=== PATIENT | male | born 1945 | race Caucasian/White ===

== ENCOUNTER → 2018-11-02 | Outpatient (CLI) | payer MEDICARE ==
--- NOTE | 2018-11-02 11:33 | REP ---
LEFT ANKLE, FOUR VIEWS: HISTORY: Sprain. There is no acute fracture or dislocation. The joint space is normal in appearance. Calcified densities are present inferior to the medial and lateral malleoli. These represent ligamentous or tendon calcifications. Soft tissue swelling is present. IMPRESSION: There is no acute fracture or dislocation. Electronically Signed by Chepe Dowd MD 11/02/2018 11:39 A
== END ==
LOC: M WUC 10:07
PROVIDERS: ATTEND Physician Assistant
DX: S93.402A Sprain of unspecified ligament of left ankle, initial encounter (principal); X58.XXXA Exposure to other specified factors, initial encounter; Y92.9 Unspecified place or not applicable

== ENCOUNTER → 2020-09-23 | Outpatient (CLI) | payer MEDICARE | LOC: M LABSMTC 11:22 | PROVIDERS: ATTEND Pediatrics | DX: Z20.828 Contact with and (suspected) exposure to other viral communicable diseases (principal) ==

== ENCOUNTER → 2021-06-23 | Outpatient (CLI) | payer MEDICARE ==
[~2021-06-23] MED LIST: AMLO25TA PO; ASPI81TA26 PO; ATOR1TAB21 PO; FISH1000 PO; HYDR12.55 PO; LOSA100T50 PO; METF-839 PO; METF10004 PO; THERTAB52 PO
== END ==
LOC: M LABSMTC 10:25
PROVIDERS: ATTEND Anesthesiology
DX: Z01.818 Encounter for other preprocedural examination (principal); Z20.822 Contact with and (suspected) exposure to COVID-19

== ENCOUNTER 2021-06-28 09:43 | Day surgery (SDC) | payer MEDICARE ==
[~2021-06-28] VITALS: Ht 172.7 cm; Wt 83.2 kg
[~2021-06-28 09:43] MED LIST changes: +NS 1,000 ML IV ONE
[2021-06-28] MEDS ORDERED: LIDOCAINE 2% 100MG/5ML SDV (FOR ANES.) As Ordered ONE (10:15)
[2021-06-28] MEDS ORDERED: propofoL 200 MG/20 ML VIAL As Ordered ONE ×2 (10:15→10:36)
--- NOTE | 2021-06-28 10:49 | ROOR ---
Patient Name: Len Clinton Procedure Date: 06/28/2021 10:19 AM Date of : 1945 Age: 75 Room: [facility] Gender: Male Note Status: Finalized Procedure: Total Colonoscopy to Cecum + Cold Snare Polypectomy + Hemoclips Indications: High risk colon cancer surveillance: Personal history of colonic polyps, Last colonoscopy: 2017 Providers: Bo Reed MD Referring MD: Talia Dorantes DO Requesting Provider: Medicines: Monitored Anesthesia Care Complications: No immediate complications. Procedure: Pre-Anesthesia Assessment: - The heart rate, respiratory rate, oxygen saturations, blood pressure, adequacy of pulmonary ventilation, and response to care were monitored throughout the procedure. The Colonoscope was introduced through the anus and advanced to the cecum, identified by appendiceal orifice and ileocecal valve. The colonoscopy was performed without difficulty. The patient tolerated the procedure well. The quality of the bowel preparation was excellent. Findings: The perianal and digital rectal examinations were normal. Non-bleeding internal hemorrhoids were found during retroflexion. The hemorrhoids were small and Grade I (internal hemorrhoids that do not prolapse). Scattered small-mouthed diverticula were found in the recto-sigmoid colon, sigmoid colon and descending colon. A medium polyp was found at 25 cm proximal to the anus. The polyp was semi-pedunculated. The polyp was removed with a cold snare. Resection and retrieval were complete. To prevent bleeding after the polypectomy, two hemostatic clips were successfully placed. There was no bleeding at the end of the procedure. The exam was otherwise without abnormality on direct and retroflexion views. Impression: - Non-bleeding internal hemorrhoids. - Diverticulosis in the recto-sigmoid colon, in the sigmoid colon and in the descending colon. - One medium polyp at 25 cm proximal to the anus, removed with a cold snare. Resected and retrieved. Clips were placed. - The examination was otherwise normal on direct and retroflexion views. - The exam was otherwise normal to the cecum. Recommendation: - Patient has a contact number available for emergencies. The signs and symptoms of potential delayed complications were discussed with the patient. Return to normal activities tomorrow. Written discharge instructions were provided to the patient. - High fiber diet. - Discharge patient to home. - Continue present medications. - Await pathology results. - Telephone GI clinic for pathology results in 1 week. - Repeat colonoscopy is not recommended for surveillance based on pathology results. - Return to referring physician. - The findings and recommendations were discussed with the patient's family. Procedure Code(s): --- Professional --- 68148, Colonoscopy, flexible; with removal of tumor(s), polyp(s), or other lesion(s) by snare technique Diagnosis Code(s): --- Professional --- Z86.010, Personal history of colonic polyps K64.0, First degree hemorrhoids K63.5, Polyp of colon K57.30, Diverticulosis of large intestine without perforation or abscess without bleeding CPT copyright 2019 [employer]. All rights reserved. The codes documented in this report are preliminary and upon digital analytics manager review may be revised to meet current compliance requirements. Bo Reed MD Bo Reed MD 06/28/2021 10:49:15 AM Electronically signed by Bo Reed MD Number of Addenda: 0 Note Initiated On: 06/28/2021 10:19 AM Estimated Blood Loss: Estimated blood loss: none.
[2021-06-28 11:07] VITALS: BP 114/74
== END 2021-06-28 11:08 | disposition home or self-care (01) ==
LOC: M OPP 09:43
PROVIDERS: ATTEND Internal Medicine Gastroenterology
DX: Z12.11 Encounter for screening for malignant neoplasm of colon (principal); Z86.010 Personal history of colon polyps; D12.6 Benign neoplasm of colon, unspecified; K57.30 Diverticulosis of large intestine without perforation or abscess without bleeding; K64.8 Other hemorrhoids; Z79.82 Long term (current) use of aspirin; Z79.84 Long term (current) use of oral hypoglycemic drugs; Z79.899 Other long term (current) drug therapy; Z87.891 Personal history of nicotine dependence

== ENCOUNTER → 2022-03-14 | Outpatient (CLI) | payer MEDICARE ==
[~2022-03-14] MED LIST changes: +LOSA100T45 PO; -LOSA100T50 PO; -NS 1,000 ML IV ONE
== END ==
LOC: M WHC 08:08
PROVIDERS: ATTEND Internal Medicine
DX: Z13.6 Encounter for screening for cardiovascular disorders (principal)